=== PATIENT | female | born 1995 | race Caucasian/White ===

== ENCOUNTER → 2016-12-31 | Outpatient (CLI) | payer BC, OTHER | END | disposition home or self-care (01) | LOC: C.LABPVFM 13:44 | PROVIDERS: ATTEND Nurse Practitioner | DX: J02.9 Acute pharyngitis, unspecified (principal) ==

== ENCOUNTER → 2017-07-23 | Outpatient (CLI) | payer BC ==
[2017-07-23 14:00] LABS: CHOLESTEROL/HDL RATIO 3.5
== END | disposition home or self-care (01) ==
LOC: C.LABMFLN 10:52
PROVIDERS: ATTEND Family Medicine
DX: Z13.1 Encounter for screening for diabetes mellitus (principal); Z13.220 Encounter for screening for lipoid disorders

== ENCOUNTER → 2018-07-24 | Outpatient (CLI) | payer BC ==
[2018-07-24 14:48] LABS: BLOOD UREA NITROGEN 14 mg/dl (7-18); CHOLESTEROL 165 mg/dl (0-200); CREATININE 1.01 mg/dl (0.60-1.20); GLUCOSE,FASTING 83 mg/dl (70-99); LDL CHOLESTEROL CALCULATED 104 mg/dl
== END | disposition home or self-care (01) ==
LOC: C.LABMFLN 09:07
PROVIDERS: ATTEND Family Medicine
DX: Z13.1 Encounter for screening for diabetes mellitus (principal); Z13.220 Encounter for screening for lipoid disorders; Z90.5 Acquired absence of kidney

== ENCOUNTER 2019-04-10 05:27 | Inpatient (IN) ==
[2019-04-10] MEDS: LACTATED RINGER'S 1,000 ML IV SCH ×2 (06:03→15:37)
[2019-04-10] MEDS ORDERED: LACTATED RINGER'S 1,000 ML IV PRN ×2 (06:05→07:28)
[2019-04-10] MEDS ORDERED: OXYTOCIN 30 UNITS/500 ML BAG IV PRN ×2 (06:05→12:02)
[2019-04-10] MEDS ORDERED: PENICILLIN G POTASSIUM 3 MU in DEXTROSE 5% 100 ML IV PRN (06:13)
[2019-04-10] MEDS ORDERED: fentaNYL citrate 100 MCG/2 ML VIAL ONE (06:22)
[2019-04-10] MEDS ORDERED: BUPIVACAINE 0.25% 30 ML VIAL ONE (06:22)
[2019-04-10] MEDS ORDERED: ePHEDrine sulfate 50 MG/ML AMP ONE (06:22)
--- NOTE | 2019-04-10 06:22 | History & Physical Report ---
Date of Service April 10, 2019 Assessment & Plan (1) labor in third trimester: - pt in active labor with advanced dilation - labor to advanced to transport - PCN for GBS - Peds aware - anticipate History of Present Illness Chief Complaint: The patient is a 23-year-old 2 para 0, EDC of 29 May by dates, who was admitted with contractions. Patient states the contractions began at approximately 0200 hrs., they have increased in intensity. She denies leaking of fluid. Prior to this the patient has had an unremarkable course. Laboratory values for the show blood type of O+, antibody negative, rubella immune, hepatitis B negative, she had a positive beta strep urinary tract infection at her first visit, she had a normal 1 hour Glucola was x2, she denied declined genetic screening. Primary Care Provider: Rodríguez Shelton MD Allergies Allergy/AdvReac Type Severity Reaction Status Date / Time No Known Allergies Allergy Verified 04/10/19 06:19 Patient History Medical History Asthma Kidney donor [place] teeth removed Social History Preferred Language: Kenyan marital status: Single Feels Safe at Home: Yes Safety Concerns: Feels Safe At This Time Smoking Status: Never smoker Hx Alcohol Use: No Hx Substance Use: No Physical Exam Constitutional: WD/WN, vitals as above Respiratory: Auscultation: lungs clear to auscultation bilaterally Cardiovascular: RRR, no murmur, no edema Extremities: no calf tenderness Gastrointestinal (Abdomen): Gravid, vertex, positive heart tones, positive palpable contractions, estimated weight of 4-1/2 pounds Genitourinary: OB Exam Monitor Tracing: + category I Cervix: 5/100/0 Results & Data Vital Signs (Past 12 Hours) Vital Signs Temp Pulse Resp BP 04/10/19 05:50 98.4 F 20 04/10/19 05:40 99 H 124/76
[2019-04-10] MEDS ORDERED: fentaNYL 2MCG/ML ROPIV 1.25MG/ML 100 ML BAG EPI ONE (06:23)
[2019-04-10] MEDS ORDERED: PENICILLIN G POTASSIUM 6 MU in DEXTROSE 5% 250 ML IV ONE (06:30)
[2019-04-10 06:48] LABS: Hematocrit (blood only) 33.6 % (37-47); Hemoglobin 11.3 g/dL (12.0-16.0); Mean Corpuscular Hgb Conc 33.6 g/dL (32-36); Platelet Count 225 K/uL (130-400); Platelet Estimate Normal (Normal); RDW Coefficient of Variation 17.4 % (11.5-14.5); RDW Standard Deviation 55.5 fL (36.4-46.3); Red Blood Count 3.82 M/uL (4.2-5.4); White Blood Count 15.86 K/uL (4.8-10.8)
[2019-04-10] MEDS ORDERED: ONDANSETRON INJ 2 MG/ML 2 ML VIAL IV PRN (07:28)
[2019-04-10] MEDS ORDERED: ePHEDrine sulfate 50 MG/ML AMP IV PRN (07:28)
[2019-04-10] MEDS ORDERED: NALBUPHINE HCL INJ 10 MG/ML AMP IV PRN (07:28)
[2019-04-10] MEDS ORDERED: NALOXONE HCL 1 MG in SODIUM CHLORIDE 0.9% 1000ML 1,000 ML IV PRN (07:28)
[2019-04-10] MEDS ORDERED: NALOXONE HCL 0.4 MG/1 ML VIAL/CARP IV PRN (07:28)
[2019-04-10] MEDS ORDERED: fentaNYL 2MCG/ML ROPIV 1.25MG/ML 100 ML BAG EPI PRN (07:28)
[2019-04-10] MEDS ORDERED: DiphenhydrAMINE HCL 50 MG/ML VIAL IV PRN (07:28)
--- NOTE | 2019-04-10 07:28 | Anesthesiology Consultation ---
Date of Service April 10, 2019 Assessment & Plan (1) Encounter for pre-operative examination: Chart Review Chart Review: Patient NOT seen in Pre Admission Testing and Acceptable Risk for Labor Epidural Consults Requested none ASA ASA2 Proposed Anesthesia Anesthesia Type: Labor Epidural Risk / Benefits Reviewed With: PT / POA / Parent / Guardian, Accepts Plan and Informed Consent Obtained History Height/Weight Height: 5 ft 3 in Weight: 74.843 kg Allergies Allergy/AdvReac Type Severity Reaction Status Date / Time No Known Allergies Allergy Verified 04/10/19 06:19 Medications Home Medications Medication Instructions Recorded Confirmed Last Taken ferrous sulfate [iron] 325 mg PO DAILY 04/10/19 04/10/19 04/09/19 vit no.[id number]-[id number] 1 tab PO DAILY 04/10/19 04/10/19 04/10/19 [ Vitamin] Active Medications Generic Name Dose Route Start Last Admin Trade Name Freq PRN Reason Stop Dose Admin Lactated Ringer's 1,000 mls @ 999 mls/hr 04/10/19 06:05 04/10/19 06:43 Lr IV 05/10/19 06:04 999 mls/hr .Q1H1M PRN Administration Pre-Anesthesia Lactated Ringer's 1,000 mls @ 125 mls/hr 04/10/19 06:15 04/10/19 06:38 Lr IV 04/12/19 06:14 0 mls/hr .Q8H RICHIE Infusion Penicillin G Potassium 6 mu/ 262 mls @ 262 mls/hr 04/10/19 06:30 04/10/19 06:38 Dextrose IV 04/10/19 07:29 262 mls/hr NOW ONE Administration NPO Date Last Intake of Fluids: 04/10/19 Time Last Intake of Fluids: 04:00 Date Last Intake of Solids: 04/09/19 Time Last Intake of Solids: 21:00 Past Medical History Medical History Asthma Eczema Kidney donor [place] teeth removed Exercise / Class Metabolic Activity II 4-5 Yardwork/Stairs/Walk up hill Past Anesthesia History No Hx of Anesthesia Complications and No Family Hx of Anesthesia Complications History of PONV No Hx of PONV and No Hx of Motion Sickness Social History Smoking Status: Never smoker Hx Alcohol Use: No Hx Substance Use: No substance use type: does not use Physical Exam Vital Signs Last Vital Signs Temp 36.9 C 04/10/19 05:50 Pulse 100 H 04/10/19 07:23 Resp 20 04/10/19 05:50 BP 122/74 04/10/19 07:23 Pulse Ox 100 04/10/19 07:21 ENMT Mouth: no dentition abnormality Thyromental Distance: > or= 3.5 Finger Breadths Mallampati Class: II Neck normal visual inspection Respiratory normal respiratory effort Auscultation: lungs clear to auscultation bilaterally Cardiovascular Rate/Rhythm: regular rate and regular rhythm Psychiatric Orientation: alert Testing Laboratory Results 04/10/19 06:15
--- NOTE | 2019-04-10 07:58 | Obstetrical Progress Note ---
Date of Service April 10, 2019 Assessment & Plan (1) labor in third trimester: - tracing Cat II - pt comfortable - vertex by U/S - PCN dose in - scheduled C/S in progress - will wait to AROM till room cleared Subjective comfortable with epidural Physical Exam Gastrointestinal (Abdomen): Bedside U/S, vertex Genitourinary: Cervix: 8/100/0: bulging membranes at 0, presenting part not palpable Results & Data Vital Signs (Past 12 Hours) Vital Signs Temp Pulse Resp BP Pulse Ox 04/10/19 07:51 98 H 99 04/10/19 07:50 103 H 125/63 04/10/19 07:46 102 H 100 04/10/19 07:44 103 H 116/67 04/10/19 07:41 104 H 115/68 99 04/10/19 07:39 100 H 115/65 04/10/19 07:37 98 H 121/68 04/10/19 07:36 108 H 119/56 L 100 04/10/19 07:33 98.1 F 108 H 18 117/68 04/10/19 07:31 103 H 115/69 100 04/10/19 07:29 103 H 117/69 04/10/19 07:27 105 H 120/69 04/10/19 07:26 108 H 100 04/10/19 07:25 108 H 121/71 04/10/19 07:23 100 H 122/74 04/10/19 07:21 108 H 119/71 100 04/10/19 07:19 108 H 123/75 04/10/19 07:16 110 H 100 04/10/19 07:11 105 H 100 04/10/19 07:09 117 H 92 04/10/19 07:06 103 H 100 04/10/19 07:01 94 H 100 04/10/19 06:56 98 H 100 04/10/19 06:51 101 H 100 04/10/19 06:46 108 H 100 04/10/19 06:41 101 H 100 04/10/19 06:36 104 H 100 04/10/19 06:31 104 H 100 04/10/19 05:50 98.4 F 20 04/10/19 05:40 99 H 124/76
[2019-04-10] MEDS ORDERED: BETAMETH SOD PHOS/ACETATE IA 6 MG/ML IM ONE (09:07)
--- NOTE | 2019-04-10 10:36 | Obstetrical Progress Note ---
Date of Service April 10, 2019 Assessment & Plan (1) labor in third trimester: (2) Group beta Strep positive: on pcn. now with arom anticip soon. peds made aware. Subjective pt feeling pressure on and off. 2nd bag pcn hung. ready for arom Physical Exam Genitourinary: Manual OB Exam: + cervical dilation (rim), + cervical effacement 100%, + station + 1 and + amniotic fluid clear OB Exam Monitor Tracing: + external FHT monitor used (145 mod variability, reactive ), + external uterine monitor used (q1-2) and + category I Results & Data Vital Signs (Past 12 Hours) Vital Signs Temp Pulse Resp BP Pulse Ox 04/10/19 10:31 116 H 100 04/10/19 10:26 110 H 114/66 100 04/10/19 10:24 114 H 91 04/10/19 10:21 110 H 98 04/10/19 10:17 110 H 93 04/10/19 10:16 111 H 98 04/10/19 10:12 127 H 105/58 L 04/10/19 10:11 122 H 100 04/10/19 10:06 122 H 100 04/10/19 10:01 109 H 100 04/10/19 09:57 101 H 113/69 04/10/19 09:56 103 H 100 04/10/19 09:52 101 H 93 04/10/19 09:51 101 H 98 04/10/19 09:46 99 H 99 04/10/19 09:43 107 H 84 L 04/10/19 09:42 101 H 111/68 04/10/19 09:41 102 H 99 04/10/19 09:36 98 H 100 04/10/19 09:31 106 H 98 04/10/19 09:30 22 04/10/19 09:29 103 H 92 04/10/19 09:26 104 H 110/67 97 04/10/19 09:21 98 H 96 04/10/19 09:16 105 H 100 04/10/19 09:15 20 04/10/19 09:11 101 H 116/59 L 96 04/10/19 09:06 105 H 100 04/10/19 09:05 99 H 93 04/10/19 09:01 99 H 100 04/10/19 09:00 16 04/10/19 08:56 95 H 121/67 100 04/10/19 08:51 101 H 93 04/10/19 08:50 95 H 116/67 04/10/19 08:49 96 H 90 04/10/19 08:46 102 H 98 04/10/19 08:45 112 H 18 127/76 04/10/19 08:42 95 H 93 04/10/19 08:41 97 H 100 04/10/19 08:40 93 H 118/68 04/10/19 08:36 111 H 98 04/10/19 08:35 100 H 124/67 04/10/19 08:34 106 H 91 04/10/19 08:31 112 H 95 04/10/19 08:30 105 H 18 113/71 04/10/19 08:29 104 H 113/75 04/10/19 08:28 104 H 91 04/10/19 08:26 100 H 98 04/10/19 08:24 95 H 111/66 04/10/19 08:21 101 H 99 04/10/19 08:19 104 H 92 04/10/19 08:16 107 H 100 04/10/19 08:15 101 H 105/59 L 04/10/19 08:14 16 04/10/19 08:11 108 H 120/62 100 04/10/19 08:06 98 H 100 04/10/19 08:04 104 H 115/61 04/10/19 08:01 111 H 99 04/10/19 08:00 100 H 16 124/67 04/10/19 07:56 103 H 98 04/10/19 07:54 104 H 120/65 04/10/19 07:51 98 H 99 04/10/19 07:50 103 H 125/63 04/10/19 07:46 102 H 100 04/10/19 07:45 18 04/10/19 07:44 103 H 116/67 04/10/19 07:41 104 H 115/68 99 04/10/19 07:39 100 H 115/65 04/10/19 07:37 98 H 121/68 04/10/19 07:36 108 H 119/56 L 100 04/10/19 07:33 98.1 F 108 H 18 117/68 04/10/19 07:31 103 H 115/69 100 04/10/19 07:30 16 04/10/19 07:29 103 H 117/69 04/10/19 07:27 105 H 120/69 04/10/19 07:26 108 H 100 04/10/19 07:25 108 H 121/71 04/10/19 07:23 100 H 122/74 04/10/19 07:21 108 H 119/71 100 04/10/19 07:19 108 H 123/75 04/10/19 07:16 110 H 100 04/10/19 07:11 105 H 100 04/10/19 07:09 117 H 92 04/10/19 07:06 103 H 100 04/10/19 07:01 94 H 100 04/10/19 06:56 98 H 100 04/10/19 06:51 101 H 100 04/10/19 06:46 108 H 100 04/10/19 06:41 101 H 100 04/10/19 06:36 104 H 100 04/10/19 06:31 104 H 100 04/10/19 05:50 98.4 F 20 04/10/19 05:40 99 H 124/76
--- NOTE | 2019-04-10 11:27 | Obstetrical Progress Note ---
Date of Service April 10, 2019 Assessment & Plan (1) labor in third trimester: (2) Group beta Strep positive: pcn for gbs. pushing effectively. fhts categ 1 Subjective pushing. Physical Exam Genitourinary: Manual OB Exam: + cervical dilation 10 cm, + cervical effacement 100% and + station + 3 OB Exam Monitor Tracing: + external FHT monitor used (135 mod variabilty) and + external uterine monitor used (q2) Results & Data Vital Signs (Past 12 Hours) Vital Signs Temp Pulse Resp BP Pulse Ox 04/10/19 11:20 134 H 100 04/10/19 11:15 158 H 100 04/10/19 11:12 150 H 139/62 04/10/19 11:01 144 H 100 04/10/19 10:59 139 H 93 04/10/19 10:57 112 H 110/70 04/10/19 10:56 106 H 99 04/10/19 10:51 123 H 100 04/10/19 10:46 110 H 100 04/10/19 10:42 97 H 110/65 04/10/19 10:41 102 H 100 04/10/19 10:36 125 H 98 04/10/19 10:35 121 H 93 04/10/19 10:31 116 H 100 04/10/19 10:30 18 04/10/19 10:26 110 H 114/66 100 04/10/19 10:24 114 H 91 04/10/19 10:21 110 H 98 04/10/19 10:17 110 H 93 04/10/19 10:16 111 H 98 04/10/19 10:12 127 H 105/58 L 04/10/19 10:11 122 H 100 04/10/19 10:06 122 H 100 04/10/19 10:01 109 H 100 04/10/19 09:57 101 H 113/69 04/10/19 09:56 103 H 100 04/10/19 09:52 101 H 93 04/10/19 09:51 101 H 98 04/10/19 09:46 99 H 99 04/10/19 09:43 107 H 84 L 04/10/19 09:42 101 H 111/68 04/10/19 09:41 102 H 99 04/10/19 09:36 98 H 100 04/10/19 09:31 106 H 98 04/10/19 09:30 22 04/10/19 09:29 103 H 92 04/10/19 09:26 104 H 110/67 97 04/10/19 09:21 98 H 96 04/10/19 09:16 105 H 100 04/10/19 09:15 20 04/10/19 09:11 101 H 116/59 L 96 04/10/19 09:06 105 H 100 04/10/19 09:05 99 H 93 04/10/19 09:01 99 H 100 04/10/19 09:00 16 04/10/19 08:56 95 H 121/67 100 04/10/19 08:51 101 H 93 04/10/19 08:50 95 H 116/67 04/10/19 08:49 96 H 90 04/10/19 08:46 102 H 98 04/10/19 08:45 112 H 18 127/76 04/10/19 08:42 95 H 93 04/10/19 08:41 97 H 100 04/10/19 08:40 93 H 118/68 04/10/19 08:36 111 H 98 04/10/19 08:35 100 H 124/67 04/10/19 08:34 106 H 91 04/10/19 08:31 112 H 95 04/10/19 08:30 105 H 18 113/71 04/10/19 08:29 104 H 113/75 04/10/19 08:28 104 H 91 04/10/19 08:26 100 H 98 04/10/19 08:24 95 H 111/66 04/10/19 08:21 101 H 99 04/10/19 08:19 104 H 92 04/10/19 08:16 107 H 100 04/10/19 08:15 101 H 105/59 L 04/10/19 08:14 16 04/10/19 08:11 108 H 120/62 100 04/10/19 08:06 98 H 100 04/10/19 08:04 104 H 115/61 04/10/19 08:01 111 H 99 04/10/19 08:00 100 H 16 124/67 04/10/19 07:56 103 H 98 04/10/19 07:54 104 H 120/65 04/10/19 07:51 98 H 99 04/10/19 07:50 103 H 125/63 04/10/19 07:46 102 H 100 04/10/19 07:45 18 04/10/19 07:44 103 H 116/67 04/10/19 07:41 104 H 115/68 99 04/10/19 07:39 100 H 115/65 04/10/19 07:37 98 H 121/68 04/10/19 07:36 108 H 119/56 L 100 04/10/19 07:33 98.1 F 108 H 18 117/68 04/10/19 07:31 103 H 115/69 100 04/10/19 07:30 16 04/10/19 07:29 103 H 117/69 04/10/19 07:27 105 H 120/69 04/10/19 07:26 108 H 100 04/10/19 07:25 108 H 121/71 04/10/19 07:23 100 H 122/74 04/10/19 07:21 108 H 119/71 100 04/10/19 07:19 108 H 123/75 04/10/19 07:16 110 H 100 04/10/19 07:11 105 H 100 04/10/19 07:09 117 H 92 04/10/19 07:06 103 H 100 04/10/19 07:01 94 H 100 04/10/19 06:56 98 H 100 04/10/19 06:51 101 H 100 04/10/19 06:46 108 H 100 04/10/19 06:41 101 H 100 04/10/19 06:36 104 H 100 04/10/19 06:31 104 H 100 04/10/19 05:50 98.4 F 20 04/10/19 05:40 99 H 124/76
[2019-04-10] MEDS ORDERED: OXYTOCIN 20 UNITS in LACTATED RINGER'S 1,000 ML IV SCH (12:45)
--- NOTE | 2019-04-10 12:55 | Delivery Summary ---
DATE OF OPERATION: 04/10/2019 The patient dilated to complete and pushed to deliver a viable female infant, Apgars 5,8 over an intact perineum. Mouth and nose bulb suctioned at the perineum. The shoulders and body delivered with ease. The cried at . Cord doubly clamped and cut and to radiant warmer for drying and attention of the residential mortgage underwriter given 33 week ega. Placenta delivered spontaneously and intact, 3-vessel cord. Hemostasis achieved with dilute Pitocin and uterine massage. Bladder drained under sterile conditions for approximately 150 mL of clear yellow urine. Of note, during her pushing, hymenal band was noted and it did tear and that was trimmed and the vaginal hymenal opening was reapproximated with 3-0 Vicryl and 4-0 Vicryl for excellent hemostasis. EBL 300 mL. Cervix and sulci intact. Mother stable in recovery. The accompanied the father and nursing and pediatrics to intermediate nursery. I attest to the content of the Intraoperative Record and any orders documented therein. Any exceptions are noted below. ERICD
[2019-04-10] MEDS ORDERED: IBUPROFEN 600 MG TAB PO PRN (12:57)
[2019-04-10] MEDS ORDERED: SUPERCREAM 0.870% 15 GM JAR EXT PRN (12:57)
[2019-04-10] MEDS ORDERED: HYDROCORTISONE ACETATE 25 MG SUPP PR PRN (12:57)
[2019-04-10] MEDS ORDERED: BENZOCAINE 20% AER SPR 82.5 GM CAN EXT PRN (12:57)
--- NOTE | 2019-04-10 14:26 | Anesthesia Procedure Note ---
Date of Service April 10, 2019 Anesthesia Post Epidural Note Vital Signs Vital Signs: Temp Pulse Resp BP Pulse Ox 37.8 C H 100 H 20 110/59 L 99 04/10/19 11:51 04/10/19 14:15 04/10/19 13:53 04/10/19 14:15 04/10/19 12:25 Pain Intensity Bilateral Abdomen: Pain Intensity: 0 Notes Mental Status: alert / awake / arousable Nausea / Vomiting: adequately controlled Pain: adequately controlled Airway Patency, RR, SpO2: stable & adequate BP & HR: stable & adequate Hydration State: stable & adequate Neuraxial Anesthesia: was administered and sensory block is resolving Anesthetic Complications: no major complications apparent and Pt Satisfied with anesthetic care Epidural: Removed without complications and With tip intact
[2019-04-10] MEDS: ACETAMINOPHEN 325 MG TAB PO PRN (17:50)
[2019-04-10] MEDS: DOCUSATE SODIUM 100 MG CAP PO SCH (20:42)
[2019-04-11] MEDS: ACETAMINOPHEN 325 MG TAB PO PRN (00:13)
[2019-04-11] MEDS: OXYCODONE/ACETAMINOPHEN 5mg/325mg TAB PO PRN ×2 (04:09→09:07)
--- NOTE | 2019-04-11 06:38 | Obstetrical Progress Note ---
Date of Service April 11, 2019 Assessment & Plan (1) labor, delivered, current hospitalization: stable, routine care. breast pumping. desires d/c to go to [facility] where baby in nicu. instructions reviewed. f/u 6 wks discussed. will d/c home Subjective Ambulation: ambulating normally Voiding: no voiding problems Diet Tolerance:: regular diet Lochia:: Small Feeding Type:: breast feeding doing well, denies pain. baby at [facility] and pt wants to go there evgeny. desires d/c this am. no complaints. Physical Exam Vital Signs (Past 24 Hours) Last Vital Signs Temp 98.8 F 04/11/19 04:15 Pulse 88 04/11/19 04:15 Resp 16 04/11/19 04:15 BP 113/73 04/11/19 04:15 Pulse Ox 96 04/11/19 04:15 Constitutional WD/WN, vitals as above Respiratory normal respiratory effort, lungs clear to auscultation Cardiovascular Rate/Rhythm: regular rate and regular rhythm Gastrointestinal (Abdomen) Inspection/Auscultation: abdomen normal to inspection Percussion/Palpation: abdomen soft Fundus firm 2cm down Musculoskeletal nt calves. Psychiatric A+Ox3, euthymic affect
[2019-04-11 06:41] LABS: Hematocrit (blood only) 28.9 % (37-47); Hemoglobin 9.7 g/dL (12.0-16.0); Mean Corpuscular Hgb Conc 33.6 g/dL (32-36); Mean Platelet Volume 8.5 fL (7.4-10.4); Platelet Count 220 K/uL (130-400); RDW Coefficient of Variation 17.8 % (11.5-14.5); RDW Standard Deviation 56.3 fL (36.4-46.3); Red Blood Count 3.32 M/uL (4.2-5.4); White Blood Count 21.58 K/uL (4.8-10.8)
[2019-04-11] MEDS ORDERED: PRENATAL VITAMIN 1 TAB PO SCH (09:00)
[2019-04-11] MEDS ORDERED: DIPHTHERIA/TETANUS/PERTUSSIS 0.5 ML SYR/VIAL IM ONE (09:00)
[2019-04-11] MEDS: DOCUSATE SODIUM 100 MG CAP PO SCH ×2 (09:07→09:09)
== END 2019-04-11 09:25 | disposition home or self-care (01) | DRG 807 ==
LOC: OPB 05:27 → 4S1 05:31 → 4S2 18:18

== ENCOUNTER 2022-08-24 06:45 | Inpatient (IN) ==
--- NOTE | 2022-08-03 14:53 | History & Physical Report ---
Date of Service August 03, 2022 Assessment & Plan (1) malpresentation: (2) Encounter for sterilization: Plan On day of admission pt will be 39wks and if malpresentation persists will plan c/s. She desires tubal ligation as well. She declines ecv. Risks, alternatives and complications of procedure reviewed with patient and include but are not limited to bleeding, infection, anesthesia, injury to maternal and structures, delayed complication, failure of tubal procedure with resultant , ectopic which can be medical emergency, regret. Patient desires to proceed and consent signed. She is aware of preop and postop instructions and course. Will plan recheck for presentation before procedure. History of Present Illness Chief Complaint: planned c/s and tubal Primary Care Provider: Nona Ramsey, DO 26yo at 36 wks ega today for planned c/s and desires sterilization on day of admission at 39wk. She was noted to be breech presentation at yesterday's visit. Counseled about ecv and declines. Plans c/s if baby remains breech. Today also wants to discuss and plan tubal sterilization as she is sure she is done childbearing. She is aware of risks, alt and complications, all control options and male vas. PNC c/b 1. malpresentation 2. GDM on insulin 3. History of kidney donor 4. Prior delivery at 33wks PNL rhpos, ri, gbs pending OBH: x 1 sab x 1 GYNH: nl pap Allergies Allergy/AdvReac Type Severity Reaction Status Date / Time No Known Allergies Allergy Verified 08/03/22 11:10 [facility] seasoning Allergy Uncoded 10/17/20 14:00 Home Medications Medication Instructions Recorded Confirmed Type clobetasol 0.05 % topical cream 1 appln topical BID PRN severe 09/22/19 08/03/22 Rx itch #30 grams prenat.vits,aym,yom-xcmp-uwief 1 tab PO DAILY 02/14/22 08/03/22 History acetone (urine) test (Ketone Urine #50 ea 03/30/22 08/03/22 Rx Test strips) blood sugar diagnostic (OneTouch #150 ea 03/30/22 08/03/22 Rx Verio test strips) blood-glucose meter (OneTouch #1 ea 03/30/22 08/03/22 Rx Verio Reflect Meter) lancets 33 gauge (OneTouch Delica #150 ea 03/30/22 08/03/22 Rx Lancets) insulin NPH isoph U-100 human 100 8 unit (0.08 mL) subcut .at 04/26/22 08/03/22 Rx unit/mL (3 mL) subcutaneous pen bedtime #15 mL (Novolin N Flexpen) pen needle, diabetic 32 gauge x #150 ea 04/26/22 08/03/22 Rx 5/32" (BD Ultra-Fine Elizabeth Pen Needle) insulin syringe-needle U-100 0.3 #100 ea 05/05/22 08/03/22 Rx mL 31 gauge x 5/16" (BD Insulin Syringe Ultra-Fine) insulin aspart U-100 100 unit/mL See Rx Instructions subcut TID #20 05/08/22 08/03/22 Rx subcutaneous solution (Novolog mL U-100 Insulin aspart) Patient History Medical History (Updated 08/03/22 @ 14:51 by Bonnie Hatch MD, FACOG) Asthma Eczema Group beta Strep positive History of chicken pox IBS (irritable bowel syndrome) Kidney donor Lactose intolerance labor in third trimester S/p nephrectomy Surgical History [place] teeth removed Family History (Updated 02/14/22 @ 13:17 by Susan Millan) Father Hypertension Denies family history of Ovarian cancer Breast cancer Colorectal cancer Social History (Updated 02/14/22 @ 13:18 by Susan Millan) Smoking Status: Never smoker Hx Alcohol Use: No Hx Substance Use: No Preferred Language: Sami Blood Donor Recruiter Required: No Beliefs That Will Affect Care: None marital status: marital status details: Igor Merritt (27) [phone] Current Living Situation: Spouse and Family Current Living Situation Comment: lives with spouse, daughter, dog current occupational status: employed current occupation: self employed sells on [email or web address] Feels Safe at Home: Yes Assistive Devices: None Review of Systems as per Subjective / HPI Physical Exam Constitutional: WD/WN, vitals as above Respiratory: normal respiratory effort, lungs clear to auscultation Cardiovascular: Rate/Rhythm: regular rate and regular rhythm Gastrointestinal (Abdomen): soft gravid nt Musculoskeletal: no edema Neurologic: grossly normal Psychiatric: A+Ox3, euthymic affect Genitourinary: +FHTs Coding Level of Care Code None Diagnoses malpresentation O32.9XX0 Encounter for sterilization Z30.2
--- NOTE | 2022-08-14 15:46 | Anesthesiology Consultation ---
Date of Service August 14, 2022 Assessment & Plan (1) Encounter for pre-operative examination: COVID screening: Per assessment on 08/14: No known COVID-19 positive contacts or current COVID-19 related symptoms. Travel screen negative. 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 History Surgery Operation Date: 08/24/22 08:50 Proposed Procedures p Section in LD (Delivery of Baby throught Abdominal Incision) - Bonnie Hatch MD, FACOG Height/Weight Height: 5 ft 3 in Weight: 87.543 kg Allergies Allergy/AdvReac Type Severity Reaction Status Date / Time No Known Allergies Allergy Verified 08/14/22 14:29 [place] seasoning Allergy Unknown HIVES, Uncoded 08/14/22 14:29 THROAT SWELLS Medications Home Medications Medication Instructions Recorded Confirmed Last Taken clobetasol 0.05 % topical cream 1 appln topical BID PRN severe 09/22/19 08/14/22 Unknown itch #30 grams prenat.vits,amy,mla-jvqm-vydtk 1 tab PO HS 02/14/22 08/14/22 Unknown acetone (urine) test (Ketone Urine #50 ea 03/30/22 08/10/22 Unknown Test strips) blood sugar diagnostic (OneTouch #150 ea 03/30/22 08/10/22 Unknown Verio test strips) blood-glucose meter (OneTouch #1 ea 03/30/22 08/10/22 Unknown Verio Reflect Meter) lancets 33 gauge (OneTouch Delica #150 ea 03/30/22 08/10/22 Unknown Lancets) pen needle, diabetic 32 gauge x #150 ea 04/26/22 08/10/22 Unknown 5/32" (BD Ultra-Fine Elizabeth Pen Needle) insulin syringe-needle U-100 0.3 #100 ea 05/05/22 08/10/22 Unknown mL 31 gauge x 5/16" (BD Insulin Syringe Ultra-Fine) insulin aspart U-100 100 unit/mL See Rx Instructions subcut TID #20 05/08/22 08/14/22 Unknown subcutaneous solution (Novolog mL U-100 Insulin aspart) insulin NPH isoph U-100 human 100 20 unit subcut .at bedtime 08/14/22 08/14/22 Unknown unit/mL (3 mL) subcutaneous pen (Novolin N Flexpen) Past Medical History Medical History (Updated 08/14/22 @ 15:44 by Rachel Brooks) Anxiety Asthma NO INHALER Diabetes mellitus, type 2 GESTATIONAL ONLY Eczema Group beta Strep positive History of chicken pox History of COVID-19 DX'D 04/2021 HOME TEST ONLY-COUGH, LOSS TASTE AND SMELL, COLD SYMPTOMS- RESOLVED IBS (irritable bowel syndrome) HX Kidney donor labor in third trimester Past Family History Family History (Updated 08/14/22 @ 14:36 by Rahel Escamilla, RN) Father Hypertension Grandfather (Maternal) Family history of diabetes mellitus Family hx of colon cancer Denies family history of Ovarian cancer Breast cancer Colorectal cancer Past Surgical History Surgical History (Updated 08/14/22 @ 14:36 by Rahel Escamilla, RN) History of esophagogastroduodenoscopy (EGD) Nausea and vomiting after administration of anesthetic agent S/p nephrectomy DONOR-LEFT [place] teeth removed Social History Smoking Status: Never smoker Do You Dip or Chew Tobacco: No Hx Alcohol Use: No Hx Substance Use: No substance use type: does not use
[2022-08-24] MEDS ORDERED: OXYTOCIN 30 UNITS/500 ML BAG IV PRN (07:05)
[2022-08-24] MEDS ORDERED: LIDOCAINE 1% LOCAL 20 ML VIAL INFIL PRN (07:05)
[2022-08-24] MEDS ORDERED: ceFAZolin 2000MG 2,000 MG/15 ML SYR IV STA (07:05)
[2022-08-24] MEDS: LACTATED RINGER'S 1,000 ML IV PRN ×2 (07:37→08:37)
[2022-08-24] MEDS ORDERED: MoRPHine SULFATE PF 1 MG/ML 10 ML AMP/VIAL ONE (08:15)
[2022-08-24] MEDS ORDERED: PHENYLEPHRINE 100MCG/ML 5ML SYR ONE (08:15)
[2022-08-24] MEDS ORDERED: ONDANSETRON INJ 2 MG/ML 2 ML VIAL ONE (08:15)
[2022-08-24] MEDS ORDERED: fentaNYL citrate 100 MCG/2 ML VIAL ONE (08:15)
[2022-08-24 08:28] LABS: Basophils # (auto) 0.02 K/uL (0-0.2); Basophils % (auto) 0.3 %; Eosinophils # (auto) 0.03 K/uL (0-0.50); Eosinophils % (auto) 0.4 %; Hematocrit (blood only) 38.5 % (34.1-44.9); Hemoglobin 13.1 g/dl (12.0-16.0); Immature Granulocytes # (auto) 0.06 K/uL (0.00-0.02); Immature Granulocytes % (auto) 0.8 %; Lymphocytes # (auto) 2.33 K/uL (1.2-3.4); Mean Corpuscular Hemoglobin 29.8 pg (25.0-34.0); Mean Corpuscular Volume 87.5 fL (80.0-100.0); Mean Platelet Volume 9.6 fL (9.4-12.3); Monocytes # (auto) 0.67 K/uL (0.24-0.82); Monocytes % (auto) 8.6 %; Neutrophils # (auto) 4.66 K/uL (1.4-6.5); Neutrophils % (auto) 59.9 %; Platelet Count 203 K/uL (130-400); RDW Coefficient of Variation 15.6 % (11.5-14.5); RDW Standard Deviation 50.2 fL (36.4-46.3); White Blood Count 7.77 K/ul (4.8-10.8)
--- NOTE | 2022-08-24 09:10 | History & Physical Bridge Note ---
Date of Service August 24, 2022 History & Physical Bridge Note I have examined the patient, reviewed the History & Physical and in the interval since the performance of the History & Physical I have noted the following changes of clinical significance: no changes noted
[2022-08-24] MEDS ORDERED: CITRIC ACID/SODIUM CITRATE 15 ML UDC ONE (09:35)
[2022-08-24] MEDS ORDERED: ePHEDrine sulfate 50 MG/ML AMP IV PRN (10:04)
[2022-08-24] MEDS ORDERED: NALBUPHINE HCL INJ 10 MG/ML AMP IV PRN (10:04)
[2022-08-24] MEDS ORDERED: diphenhydrAMINE 50 MG/ML VIAL IV PRN (10:04)
[2022-08-24] MEDS ORDERED: NALOXONE HCL 1 MG in SODIUM CHLORIDE 0.9% 1000ML 1,000 ML IV PRN (10:04)
[2022-08-24] MEDS ORDERED: MoRPHine SULFATE PF 1 MG/ML 10 ML AMP/VIAL INT SPINAL ONE (10:04)
[2022-08-24] MEDS ORDERED: ONDANSETRON INJ 2 MG/ML 2 ML VIAL IV PRN (10:04)
[2022-08-24] MEDS ORDERED: NALOXONE HCL 0.08 MG in SYRINGE 1.8 ML IV PRN (10:04)
[2022-08-24] MEDS ORDERED: MoRPHine SULFATE 2 MG/ML CARP IV PRN (10:04)
[2022-08-24] MEDS ORDERED: NALOXONE HCL 0.4 MG/1 ML VIAL/CARP IV PRN (10:04)
[2022-08-24] MEDS ORDERED: LACTATED RINGER'S 500 ML IV PRN (10:04)
[2022-08-24] MEDS ORDERED: PROMETHAZINE HCL 6.25 MG in SODIUM CHLORIDE 0.9% 50 ML IV PRN (10:04)
[2022-08-24] MEDS ORDERED: NO NARCOTICS OR SEDATIVES SCH (10:15)
[2022-08-24] MEDS ORDERED: SODIUM CHLORIDE 0.9% 1000ML 1,000 ML IV SCH (10:15)
[2022-08-24] MEDS ORDERED: DC INTRASPINAL MORPHINE SCH (10:15)
--- NOTE | 2022-08-24 11:10 | Operative Report ---
PG Post Operative Report Pre & Post Diagnosis Operation Date: 08/24/22 08:50 Pre-Op Diagnosis: 1. 39+wk IUP 2. Breech presentation 3. Desires sterilization Post-Op Diagnosis: Same as pre-op I identified the patient and participated in the time-out.: Yes Procedure Operation Date: 08/24/22 08:50 Actual Procedures p Primary Low Transverse Section Modified Chantel Bilateral Tubal Ligation Surgeon Bonnie Hatch MD, FACOG Weigh And Charge Worker PGY 1 Estimated Blood Loss 600 Findings Consistent with Post-Op Diagnosis (viable male apgars pending. normal uterus tubes and ovaries bilaterally) Fluids 1500 Specimens cord blood portion of right fallopian tube portion of left fallopian tube Drains stevens Anesthesia Type Spinal Complications none Disposition Accompanied Patient To Recovery: No Disposition: L&D Indications 26yo at 39+wks with breech presentation, declines ECV, desires section. Desires sterilization. Description of Procedure The patient was taken to the operating room and identified. After adequate anesthesia was obtained, she was placed in the supine position with a leftward tilt on the operating table and prepped and draped in the usual sterile fashion. A stevens catheter had already been placed. The knife was used to create a Pfannensteil skin incision that was carried down to the underlying layer of fascia. The fascia was nicked in the midline and this opening was extended laterally using Lopez scissors. Santy clamps were placed on the superior and inferior aspect of the fascial incision tenting it upward and the underlying rectus muscles were dissected off the overlying fascia both sharply and bluntly using Lopez scissors. The rectus muscles were bluntly in the midline. The peritoneal cavity was bluntly entered into. This opening was stretched. The bladder blade was placed. The vesicouterine peritoneum was elevated and opened up into and the bladder flap was created digitally and bladder blade was replaced. The knife was used to create a hysterotomy and this opening was stretched. The operators hand was placed through the hysterotomy and the bladder blade was removed. The buttocks was elevated and with fundal pressure the buttocks was delivered to the shoulders. Shoulders swept across the anterior midline and head flexed and delivered. The cord was clamped and cut and the 's mouth and nares were bulb suction. The infant was handed off to the awaiting pediatricians. Cord blood was obtained. The placenta was manually expressed. The uterus was exteriorized and cleared of all clots and debris. Dilute IV Pitocin was begun. The uterine tone was improving. The hysterotomy was closed in a running interlocking fashion using 0 Vicryl followed by a interrupted sutures of 0 Vicryl. The hysterotomy was hemostatic. Attention was turned to the left fallopian tube that was followed out to its fimbriated end. The tube was elevated using a jess clamp and a knuckle of tube was doubly ligated with 2-0 plain suture and transected. The specimen was sent. The stumps were cauterized with the bovie. The right fallopian tube was identified to its fimbriated end, elevated, double ligated and transected in a similar fashion. The specimen was sent and the stump of tube was cauterized with the bovie.The pelvis was suctioned of any fliud. The uterus was returned to the abdomen. The gutters were cleared of all clots and debris. The hysterotomy was reinspected and noted to be hemostatic, the tubal sites were intact and hemostatic. The fascia was then closed in running fashion using 0 Vicryl. The subcutaneous fat was copiously irrigated and reapproximated using 2-0 chromic. The skin was closed in a subcuticular fashion using 4-0 monocryl. At this point the procedure was terminated. The patient was transferred to the recovery room in stable condition. All sponge, lap and needle counts are correct x2. I attest to the content of the Intraoperative Record and any orders documented therein. Any exceptions are noted below. OB Procedure Charges [id number] Add on Tubal for C/S
--- NOTE | 2022-08-24 11:18 | Anesthesiology Progress Note ---
Date of Service August 24, 2022 Anesthesia Post Procedure Vital Signs Vital Signs: Temp Pulse Resp BP Pulse Ox 08/24/22 07:41 36.8 C 20 08/24/22 11:14 75 114/59 L 08/24/22 11:12 64 100 08/24/22 07:00 36.8 C 98 H 20 122/81 Transfer of Care Handoff Completed per policy Notes Mental Status: alert / awake / arousable and participated in evaluation Patient Amnestic to Procedure: No Nausea / Vomiting: adequately controlled Pain: adequately controlled Airway Patency, RR, SpO2: stable & adequate BP & HR: stable & adequate Hydration State: stable & adequate Neuraxial Anesthesia: was administered and sensory block is resolving Anesthetic Complications: no major complications apparent and Pt Satisfied with anesthetic care
[2022-08-24] MEDS ORDERED: BENZOCAINE 20% AER SPR 82.5 GM CAN EXT PRN (12:28)
[2022-08-24] MEDS ORDERED: DIPHTHERIA/TETANUS/PERTUSSIS 0.5 ML SYR/VIAL IM ONE (12:28)
[2022-08-24] MEDS ORDERED: SENNA 8.6 MG TAB PO PRN (12:28)
[2022-08-24] MEDS ORDERED: HYDROCORTISONE ACETATE 25 MG SUPP PR PRN (12:28)
[2022-08-24] MEDS ORDERED: MAGNESIUM HYDROXIDE SUSP 30 ML UDC PO PRN (12:28)
[2022-08-24] MEDS: OXYTOCIN 20 UNITS in LACTATED RINGER'S 1,000 ML IV SCH ×2 (14:06→23:40)
[2022-08-24] MEDS: KETOROLAC 30 MG/ML VIAL IV PRN ×2 (14:50→20:32)
[2022-08-24] MEDS: SIMETHICONE 80 MG CHEW PO SCH ×3 (14:51→20:29)
[2022-08-24] MEDS: DOCUSATE SODIUM 100 MG CAP PO SCH (20:29)
[2022-08-24] MEDS: LACTATED RINGER'S 1,000 ML IV SCH (23:01)
[2022-08-25] MEDS ORDERED: ZOLPIDEM TARTRATE 5 MG TAB PO PRN (04:04)
[2022-08-25] MEDS ORDERED: diphenhydrAMINE Capsule 25 MG CAP PO PRN (04:04)
[2022-08-25] MEDS ORDERED: PROMETHAZINE HCL 25 MG in SODIUM CHLORIDE 0.9% 50 ML IV PRN (04:04)
[2022-08-25] MEDS ORDERED: diphenhydrAMINE 50 MG/ML VIAL IV PRN (04:04)
[2022-08-25] MEDS ORDERED: ONDANSETRON INJ 2 MG/ML 2 ML VIAL IV PRN (04:04)
[2022-08-25] MEDS: oxyCODONE/ACETAMINOPHEN 5mg/325mg TAB PO PRN ×3 (04:30→20:41)
[2022-08-25] MEDS: IBUPROFEN 600 MG TAB PO PRN ×3 (04:31→20:42)
[2022-08-25] MEDS ORDERED: CITRIC ACID/SODIUM CITRATE 15 ML UDC PO SCH (06:00)
--- NOTE | 2022-08-25 06:40 | Obstetrical Progress Note ---
Date of Service August 25, 2022 Assessment & Plan (1) delivery delivered: (2) Insulin controlled gestational diabetes mellitus (GDM) during : (3) GBS (group B Streptococcus carrier), +RV culture, currently : (4) Kidney donor: Plan - Overall, feeling well and eating well today - Incision is clean and dry without erythema or purulence, bandages removed AM 08/25 - breast feeding going well without concern - Urinating and passing gas appropriately - Ambulating well around room - Pain controlled w/ Percocet and Ibuprofen - Routine PP care progressing well - Patient wishes to go home today, but is agreeable to stay to this evening and reassess - Explained to patient that often times discomfort will arise as the spinal anesthesia wears off throughout Day #1 Admission and Anticipated Discharge Date Admission Date: August 24, 2022 Supervising Physician Co-Signing Physician Notes Resident Physician Supervision Note: I was present with Dr. Dr. Stewart during the history and exam. I discussed the case with the resident and agree with the findings and plan as documented in the note. Any exceptions or clarifications are listed here: [None] Documented By: Dorene Fox MD, FACOG Subjective Today 08/25: Patient is a 26 y/o female who is POD#1 following delivery at 39w1d. She notes that she is feeling excellent overall today and is wanting to go home if possible. - Ambulation - around room - Voiding/Carreon - independently, no dysuria - Gas/Stool - passing gas, no bowel movement - Diet - regular diet (light appetite), no nausea or vomitting - Lochia - light amount - Infant Feeding Type - breast feeding, no breast pain - Pain Level - 2/10, on Percocet and ibuprofen Review of Systems - Denies fever, chills, sweats - Denies shortness of breath, difficulty breathing, chest pain, palpitations, chest pressure. - Denies breast pain. - Denies dysuria. - Denies headache or changes in vision. Physical Exam Physical Exam: General: Alert, oriented. No acute distress. Cardiac: RRR, normal S1/S2, no murmurs/rubs/gallops. Respiratory: Non-labored, CTAB, no wheezes/rales/rhonchi. Symmetric chest rise. Abdomen: Soft, nontender, nondistended. Bowel sounds present. Uterus: Uterine fundus firm, palpable 1cm below umbilicus. Incision is clean and dry, no erythema, mild ecchymosis, no purulence. Lower Extremities: No lower extremity edema or swelling. No deep calf pain. Arcenio's negative bilaterally. Results & Data ([facility]) Vital Signs (Past 12 Hours) Vital Signs Temp Pulse Resp BP Pulse Ox O2 Del Method 08/25/22 04:12 18 97 08/25/22 04:12 37.2 C 109 H 18 123/80 97 Room Air 08/25/22 03:41 16 95 08/25/22 02:35 18 95 08/25/22 01:31 16 96 08/25/22 00:40 16 95 08/24/22 23:33 16 95 08/24/22 22:52 36.9 C 82 18 105/69 97 Room Air 08/24/22 22:25 18 98 08/24/22 21:20 18 98 08/24/22 19:10 16 98 08/24/22 20:20 16 97 08/24/22 20:20 37.3 C 100 H 18 113/75 97 Room Air Resident Activity Tracking Resident Involvement: Resident Care Provided Care Provided: OB Delivery
[2022-08-25 06:43] LABS: Basophils # (auto) 0.02 K/uL (0-0.2); Basophils % (auto) 0.2 %; Eosinophils # (auto) 0.02 K/uL (0-0.50); Eosinophils % (auto) 0.2 %; Hematocrit (blood only) 31.8 % (34.1-44.9); Hemoglobin 10.6 g/dl (12.0-16.0); Immature Granulocytes # (auto) 0.03 K/uL (0.00-0.02); Immature Granulocytes % (auto) 0.3 %; Lymphocytes # (auto) 1.85 K/uL (1.2-3.4); Mean Corpuscular Hemoglobin 29.8 pg (25.0-34.0); Mean Corpuscular Hgb Conc 33.3 g/dL (32.0-36.0); Mean Corpuscular Volume 89.3 fL (80.0-100.0); Mean Platelet Volume 9.5 fL (9.4-12.3); Monocytes # (auto) 0.69 K/uL (0.24-0.82); Monocytes % (auto) 7.1 %; Neutrophils # (auto) 7.12 K/uL (1.4-6.5); Neutrophils % (auto) 73.2 %; Platelet Count 170 K/uL (130-400); RDW Coefficient of Variation 15.7 % (11.5-14.5); Red Blood Count 3.56 M/uL (3.93-5.22); White Blood Count 9.73 K/ul (4.8-10.8)
[2022-08-25] MEDS: PRENATAL VITAMIN 1 TAB PO SCH (07:54)
[2022-08-25] MEDS: FERROUS SULFATE 325 MG TAB PO SCH (07:54)
[2022-08-25] MEDS: SIMETHICONE 80 MG CHEW PO SCH ×4 (07:54→20:41)
[2022-08-25] MEDS: DOCUSATE SODIUM 100 MG CAP PO SCH ×2 (07:54→20:44)
[2022-08-26] MEDS: IBUPROFEN 600 MG TAB PO PRN ×2 (04:57→10:35)
[2022-08-26] MEDS: oxyCODONE/ACETAMINOPHEN 5mg/325mg TAB PO PRN ×3 (04:57→10:35)
[2022-08-26 07:50] LABS: Hematocrit (blood only) 29.7 % (34.1-44.9)
[2022-08-26] MEDS: FERROUS SULFATE 325 MG TAB PO SCH (08:03)
[2022-08-26] MEDS: PRENATAL VITAMIN 1 TAB PO SCH (08:03)
[2022-08-26] MEDS: SIMETHICONE 80 MG CHEW PO SCH (08:03)
[2022-08-26] MEDS: DOCUSATE SODIUM 100 MG CAP PO SCH (08:04)
--- NOTE | 2022-08-26 10:04 | Obstetrical Progress Note ---
Date of Service August 26, 2022 Assessment & Plan (1) delivery delivered: Plan stable routine care. d/c home. instructions reviewed. f/u 6 wks pp check. will have recheck of vitals before dc. she had those taken after just out of shower and baby crying after circ. hgb stable. Day #:: 2 Subjective Ambulation: ambulating normally Voiding: no voiding problems Diet Tolerance:: regular diet Lochia:: Small Feeding Type:: breast feeding denies pain issues wants to go home. Constitutional: + as per Subjective / HPI Physical Exam Constitutional WD/WN, vitals as above Respiratory normal respiratory effort, lungs clear to auscultation Cardiovascular Rate/Rhythm: regular rate and regular rhythm Gastrointestinal (Abdomen) Inspection/Auscultation: abdomen normal to inspection and + abdominal surgical incision (c/d/i with bruising) Percussion/Palpation: abdomen soft Fundus firm 1-2cm down Musculoskeletal nt calves no edema Neurologic grossly normal Psychiatric A+Ox3, euthymic affect Results & Data ([facility]) Vital Signs (Past 12 Hours) Vital Signs Temp Pulse Resp BP Pulse Ox O2 Del Method 08/26/22 09:15 98.6 F 120 H 16 140/75 97 Room Air 08/25/22 23:00 98.1 F 90 18 105/68 96 Room Air
[2022-08-26] MEDS ORDERED: bisacodyL 10 MG SUPP PR PRN (11:12)
== END 2022-08-26 12:37 | disposition home or self-care (01) | DRG 785 ==
LOC: 4S1 06:45 → EDSTATUS 08:50 → 4E2 14:21